=== PATIENT | male | born 1995 | race Caucasian/White ===

== ENCOUNTER 2024-07-02 05:33 | Emergency (ER) | payer SELFPAY ==
[~2024-07-02] VITALS: Ht 190.5 cm; Wt 104.3 kg
[2024-07-02 05:48] VITALS: BP_SYST 138; PULSE 108; RESP 18; TEMP 98.2; O2SAT 97
[2024-07-02] MEDS ORDERED: ZAN4 PO (06:16)
[2024-07-02] MEDS ORDERED: NABU-140 PO (06:16)
== END 2024-07-02 06:32 | disposition home or self-care (01) ==
LOC: SED 05:33
DX: M54.16 Radiculopathy, lumbar region (principal)
CPT/HCPCS: 99283